=== PATIENT | male | born 2000 | race Caucasian/White ===

== ENCOUNTER 2021-03-03 10:08 | Emergency (ER) | payer OTHER, SELFPAY ==
[2021-03-03 11:27] VITALS: BP 114/67; PULSE 69; RESP 16; TEMP 36.6; BMI 26.0
[2021-03-03 12:57] LABS: Influenza A PCR NEGATIVE (Negative); Influenza B PCR NEGATIVE (Negative); Resp Syncy Virus RNA Qual PCR NEGATIVE (Negative); SARS COV2 PCR INHOUSE NEGATIVE (Negative)
--- NOTE | 2021-03-03 13:10 | ED.URI ---
HPI - URI/Sore Throat General Chief Complaint: Upper Respiratory Symptoms Stated Complaint: flu like Time Seen by Provider: 03/03/21 10:37 Source: patient and family Mode of arrival: ambulatory Limitations: other ([place], autistic ) History of Present Illness HPI Narrative: 20-year-old male with a history of severe autism, hard of hearing using hearing aids who presents to the ER with his brother and mother with a cough and runny nose for the last 2 days. His brother is here with similar symptoms. Patient has not had any fever, chills, nausea, vomiting, diarrhea, abdominal pain. He has had no shortness of breath or wheezing. No chest pain. No known COVID contacts. He is in school. MD elicited complaint: cough and nasal congestion Onset (ago): day(s) (2) Consistency: intermittent Severity: mild Description of mucous: clear Able to tolerate fluids by mouth: Yes Exacerbating factors: nothing Relieving factors: OTC cold medicine Context: sick contacts Associated symptoms: rhinorrhea, nasal congestion and cough Treatments prior to arrival: none Related Data Allergies Allergy/AdvReac Type Severity Reaction Status Date / Time No Known Allergies Allergy Unverified 01/21/20 17:53 Review of Systems Review of Systems: Constitutional: No Fever, No Chills ENT/Mouth: No sore throat, + Rhinorrhea, No Swallowing Difficulty Cardiovascular: No Chest Pain, No SOB Respiratory: + Cough, No Sputum, No Wheezing, No dyspnea Gastrointestinal: No Nausea, No Vomiting, No Diarrhea, No abdominal Maninder Genitourinary: No Dysuria, No Urinary Frequency, No Hematuria Musculoskeletal: No joint pain, No Myalgias Skin: No Skin Lesions, No rash Neuro: No Dizziness, No Headache Heme/Lymph: No Lymphadenopathy PMFSH Past Medical History Medical History Learning disability Social History Social History Advance Directives: No Physical Exam Vital Signs: Vital Signs: Last Vital Signs Temp 97.8 F 03/03/21 11:27 Pulse 69 03/03/21 11:27 Resp 16 03/03/21 11:27 BP 114/67 03/03/21 11:27 Body Mass Index 26.0 Appearance: Alert. Oriented X3. No acute distress. Eyes: Pupils equal, round and reactive to light. ENT: Pharynx normal. Tympanic membranes normal bilaterally. Hearing aid present in left ear. Neck: Normal inspection. Neck supple. CVS: Normal heart rate and rhythm. Pulses normal. Respiratory: No respiratory distress. Breath sounds normal. Skin: Skin warm and dry. Normal skin color. Normal skin turgor. No rashes. Extremities: No lower extremity edema. Neuro: Interacts with mom who is able to communicate with him, avoids eye contact, guarded, ambulating in the room. Course Course Course Narrative: 20-year-old male with history of autism and hearing loss presents to the ER with cough and runny nose for the last 2 days. Positive sick contacts. No known COVID exposure. Vital signs are within normal limits and patient is in no distress. Physical exam is benign. A viral PCR test was sent, and is negative for COVID, flu, RSV. Discussed results with mom and supportive care discussed. She is continuing to give cold and flu medicine with good effect. Patient tolerating p.o. well. Stable for discharge home with his mom with continued supportive care. He will follow-up with soils technician next week. MDM - URI/Sore Throat Lab Data Labs: Lab Results 03/03/21 Range/Units 11:54 Influenza Type A (PCR) NEGATIVE (Negative) Influenza Type B (PCR) NEGATIVE (Negative) RSV RNA Qual (PCR) NEGATIVE (Negative) SARS-CoV-2 RNA (RT-PCR) NEGATIVE (Negative) Discharge Plan Discharge Clinical Impression: Viral infection Patient Disposition: Home, Self-Care Instructions: Viral Syndrome (ED) Additional Instructions: You were negative for flu, COVID, RSV. Continue [id number] cold and flu medications as needed for your symptoms. Rest and stay hydrated. Follow-up with your doctor early next week. If you develop new or worsening symptoms call 911 or come back to the ER for further evaluation. Stand Alone Forms: Work/School Release Print Language: Dominican
== END 2021-03-03 13:42 | disposition home or self-care (01) ==
PROVIDERS: Physician Assistant; Emergency Provider Emergency Medicine; PCP Pediatrics
DX: B34.9 Viral infection, unspecified (principal); H91.90 Unspecified hearing loss, unspecified ear; F84.0 Autistic disorder; Z20.822 Contact with and (suspected) exposure to COVID-19
CPT/HCPCS: 0241U; 36415; 99283

== ENCOUNTER 2023-09-04 09:22 | Emergency (ER) | payer OTHER, SELFPAY ==
--- NOTE | ~2023-09-04 | XR_ITS ---
EXAMINATION: XR CHEST CLINICAL INFORMATION: Cough and shortness of breath COMPARISON: None available. TECHNIQUE: Frontal view of the chest was obtained. FINDINGS: Lungs clear. Heart and pulmonary vessels normal. XR/XR chest 1V IMPRESSION: No active disease.
[2023-09-04 10:04] VITALS: BP 109/68; PULSE 102; RESP 19; TEMP 36.9; O2SAT 97; BMI 26.0
--- OUTSIDE RECORDS SUMMARY | 2023-09-04 10:18 | XMS_ITS | Continuity of Care Document ---
Author Organization [facility] Address [address] [place] [address]- Care Team Providers Care Marketing Finance Specialist Name Role Phone Bandar Moran MD Primary Care Physician Encounter [facility] Date(s): 05/26/19 - 06/05/[address] [address] Attending Physician: Oscar Collier Admitting Physician: Oscar Collier Referring Physician: Admtr Ar8 Allergies, Adverse Reactions, Alerts Substance Reaction Severity Status NKA Active Problem List Condition Effective Dates Status Health Status Inform ant Autism(Confirmed) Active Hearing loss(Confirmed) Active
--- OUTSIDE RECORDS SUMMARY | 2023-09-04 10:20 | XMS_ITS | Continuity of Care Document ---
Author Organization [facility] Address [address] [place] [address]- Care Team Providers Care Mortician Helper Name Role Phone Dean SALAZAR, Bandar Salvador Primary Care Physician Encounter [facility] [place] Date(s): 04/17/19 - 04/27/[address] [address]- [facility] Attending Physician: Oscar Collier Admitting Physician: Oscar Collier Referring Physician: Admtr, Ar8 Allergies, Adverse Reactions, Alerts Substance Reaction Severity Status NKA Active Problem List Condition Effective Dates Status Health Status Inform ant Autism(Confirmed) Active Hearing loss(Confirmed) Active
--- OUTSIDE RECORDS SUMMARY | 2023-09-04 10:20 | XMS_ITS | Continuity of Care Document ---
Author Organization [facility] Address [address] [place] [address]- Care Team Providers Care Cripple Chaser Name Role Phone Bandar Moran MD Primary Care Physician [place] [facility] 10/27/20 - 11/26/20 [facility] [address] [place] [address] Attending Physician: Oscar Collier Admitting Physician: Oscar Collier Referring Physician: Oscar Collier Allergies, Adverse Reactions, Alerts Substance Reaction Severity Status NKA Active Problem List Condition Effective Dates Status Health Status Inform ant Autism(Confirmed) Active Hearing loss(Confirmed) Active
--- OUTSIDE RECORDS SUMMARY | 2023-09-04 10:20 | XMS_ITS | Continuity of Care Document ---
Author Organization [facility] Address [address] [place] [address]- Care Team Providers Care Degreasing Wheel Operator Name Role Phone Dean SALAZAR, Bandar Salvador Primary Care Physician Encounter [facility] [place] Date(s): 07/28/19 - 08/07/[address] [address]- [facility] Attending Physician: Oscar Collier Admitting Physician: Oscar Collier Referring Physician: Admtr, Ar8 Allergies, Adverse Reactions, Alerts Substance Reaction Severity Status NKA Active Problem List Condition Effective Dates Status Health Status Inform ant Autism(Confirmed) Active Hearing loss(Confirmed) Active
--- OUTSIDE RECORDS SUMMARY | 2023-09-04 10:20 | XMS_ITS | Continuity of Care Document ---
Author Organization [facility] Address [address] [id number]- Care Team Providers Care Production Technologist Name Role Phone Rhett Mejia MD Primary Care Physician [phone] Encounter [facility] Date(s): 07/15/21 - 08/14/21 [facility] [address] [place] [address]- [place] Allergies, Adverse Reactions, Alerts No Known Allergies Medications melatonin 3 mg oral tablet 1 tablet = 3 mg, By Mouth, Daily at bedtime, # 90 tablet, 6 Refills Start Date: 02/21/09 Status: Ordered Problem List Condition Effective Dates Status Health Status Inform ant Autism(Confirmed) Active Hard of hearing(Confirmed) Active Hearing loss(Confirmed) Active Hyperglycemia(Confirmed) Active Low vision(Confirmed) Active Social History Social History Type Response Smoking Status Never (less than 100 in lifetime) entered on: 06/22/21 Sex
--- OUTSIDE RECORDS SUMMARY | 2023-09-04 10:20 | XMS_ITS | Continuity of Care Document ---
Author Organization [facility] Address [address] [place] [address]- Care Team Providers Care Crime Victim Specialist Name Role Phone Elías SALAZAR, Jacky Primary Care Physician [phone] Encounter [facility] [place] Date(s): 06/24/19 - 06/24/[address] [address]- [facility] Attending Physician: Bandar Moran MD Allergies, Adverse Reactions, Alerts Substance Reaction Severity Status NKA Active Medications melatonin 3 mg oral tablet 1 tablet = 3 mg, By Mouth, Daily at bedtime, # 90 tablet, 6 Refills Start Date: 02/21/09 Status: Ordered
--- OUTSIDE RECORDS SUMMARY | 2023-09-04 10:20 | XMS_ITS | Continuity of Care Document ---
Author Organization [facility] Address [address] [place] [address]- Care Team Providers Care Enterprise Infrastructure Architect Name Role Phone Rhett Mejia MD Primary Care Physician Encounter [facility] [place] Date(s): 03/20/22 - 03/20/[address] [address] Discharge Disposition: A-D/C Home Attending Physician: Skinny Vazquez MD Admitting Physician: Skinny Vazquez MD Referring Physician: Skinny Vazquez MD Allergies, Adverse Reactions, Alerts No Known Allergies Immunizations Given and Recorded Vaccine Date Status Refusal Reason Meningococcal Conjugate Vaccine 04/15/19 Recorded Human Papillomavirus Vaccine 04/15/19 Recorded tetanus/diphtheria/pertussis, acel(Tdap) 04/15/19 Recorded influenza virus vaccine, inactivated 05/24/17 Daron rded Medications melatonin 3 mg oral tablet 1 tablet = 3 mg, By Mouth, Daily at bedtime, # 90 tablet, 6 Refills Start Date: 02/21/09 Status: Ordered Problem List Condition Confirmation Course Effective Dates Status H ealth Status Informant Autism spectrum disorder Confirmed Active Hearing loss Confirmed Active Hard of hearing Confirmed Active Hearing loss Confirmed Active Hyperglycemia Confirmed Active Low vision Confirmed Active Vital Signs Most recent to oldest [Reference Range]: 1 2 3 Weight 79 kg (03/20/22 7:06 AM) Oxygen Saturation [94-100 %] 100 % (03/20/22 9:00 AM) 96 % (03/20/22 8:45 AM) 96 % (03/20/22 7:06 AM) Pulse Rate [55-90 bpm] 65 bpm (03/20/22 7:06 AM) Blood Pressure [90-138/55-84 mm Hg] 105/66mm Hg (03/20/22 9:00 AM) 106/71mm Hg (03/20/22 8:45 AM) 95/68mm Hg (03/20/22 7:06 AM) Respiratory Rate [16-30 br/min] 22 br/min (03/20/22 9:00 AM) 15 br/min *L* (03/20/22 8:45 AM) 22 br/min (03/20/22 7:06 AM) Temperature [96.8-100.4 DegF] 98.1 DegF (03/20/22 8:45 AM) 98.1 DegF (03/20/22 7:06 AM) Mode of Delivery (Oxygen) Room air (03/20/22 9:00 AM) Room air (03/20/22 8:45 AM) Room air (03/20/22 7:06 AM) Blood pressure sites Arm, left (03/20/22 8:45 AM) Arm, right (03/20/22 7:06 AM) Temperature Route Axillary (03/20/22 8:45 AM) Axillary (03/20/22 7:06 AM) Dry Weight 79 kg (03/20/22 7:06 AM) Weight Obtained Via Standing scale (03/20/22 7:06 AM) Dry Weight Obtained Via Standing scale (03/20/22 7:06 AM) Social History Social History Type Response Smoking Status Never (less than 100 in lifetime) entered on: 06/22/21 Sex Patient Care team information Care Team Personnel Name: Rhett Mejia MD Position: S Primary Care Physician Member Role: PCP Address: Address: [address] [place] [address], [address] [place] [address]- Care Team Related Persons Name: ANDREEA MAI Address: home [address] [place] [address] Name: PRECIOUS BELTRAN Address: home [address] [place] [address]
--- OUTSIDE RECORDS SUMMARY | 2023-09-04 10:20 | XMS_ITS | Continuity of Care Document ---
Author Organization [facility] Address [address] [place] [address]- Care Team Providers Care Object Oriented Developer Name Role Phone Rhett Mejia MD Primary Care Physician Encounter [facility] [place] Date(s): 07/04/22 - 08/03/[address] [address] Attending Physician: Oscar Collier Admitting Physician: AdmOscar duffy Referring Physician: Admtr, Oscar Allergies, Adverse Reactions, Alerts No Known Allergies [...] Hyperglycemia Confirmed Active Low vision Confirmed Active Social History Social History Type Response Smoking Status Never (less than 100 in lifetime) entered on: 06/22/21 Sex Patient Care team information Care Team Personnel Name: Rhett Mejia MD Position: S Primary Care Physician Member Role: PCP Address: Address: [address] [place] [address], [address] [place] [address]- Care Team Related Persons Name: ANDREEA MAI Address: home [address] [place] [address] Name: PRECIOUS BELTRAN Address: home [address] [place] [address]
--- OUTSIDE RECORDS SUMMARY | 2023-09-04 10:20 | XMS_ITS | Continuity of Care Document ---
Author Organization [facility] Address [address] [place] [address]- Care Team Providers Care Maternal Child Nurse Name Role Phone Rhett Mejia MD Primary Care Physician Encounter [facility] Date(s): 06/01/22 - 07/01/[address] [address]- Attending Physician: Oscar Collier Admitting Physician: AdmtrOscar Referring Physician: Admtr, Ar8 Allergies, Adverse Reactions, Alerts No Known Allergies [...] Condition Confirmation Course Effective Dates Status H ealt Status Informant Autism spectrum disorder Confirmed Active [...] Care Physician Member Role: PCP Address: Address: [address] [place] [address], [address] [place] [address]- Care Team Related Persons Name: ANDREEA MAI Address: home [address] [place] [address] Name: PRECIOUS BELTRAN Address: home [address] [place] [address]
--- OUTSIDE RECORDS SUMMARY | 2023-09-04 10:20 | XMS_ITS | Continuity of Care Document ---
Author Organization [facility] Address [address] [place] [address]- Care Team Providers Care Vender Name Role Phone Bandar Moran MD Primary Care Physician Encounter [facility] Date(s): 05/26/19 - 05/26/[address] [address]- [facility] Discharge Disposition: A-D/C Home Attending Physician: Bandar Moran MD Admitting Physician: Bandar Moran MD Referring Physician: Bandar Moran MD Allergies, Adverse Reactions, Alerts Substance Reaction Severity Status NKA Active Problem List Condition Effective Dates Status Health Status Inform ant Autism(Confirmed) Active Hearing loss(Confirmed) Active Vital Signs Most recent to oldest [Reference Range]: 1 2 3 Weight 83 kg (05/26/19 8:58 AM) Oxygen Saturation [94-100 %] 100 % (05/26/19 11:10 AM) 99 % (05/26/19 10:54 AM) 100 % (05/26/19 10:39 AM) Pulse Rate [55-90 bpm] 78 bpm (05/26/19 8:58 AM) Blood Pressure [80-130/50-80 mm Hg] 111/67mm Hg (05/26/19 11:10 AM) 106/56mm Hg (05/26/19 10:54 AM) 107/68mm Hg (05/26/19 10:39 AM) Respiratory Rate [16-30 br/min] 13 br/min *L* (05/26/19 11:10 AM) 15 br/min *L* (05/26/19 10:54 AM) 15 br/min *L* (05/26/19 10:39 AM) Temperature [96.8-100.4 DegF] 97.5 DegF (05/26/19 11:10 AM) 97.6 DegF (05/26/19 10:54 AM) 97.7 DegF (05/26/19 10:39 AM) Mode of Delivery (Oxygen) Room air (05/26/19 11:10 AM) Room air (05/26/19 10:54 AM) Room air (05/26/19 10:39 AM) Blood pressure sites Arm, left (05/26/19 11:10 AM) Arm, left (05/26/19 10:54 AM) Arm, left (05/26/19 10:38 AM) Temperature Route Axillary (05/26/19 11:10 AM) Oral (05/26/19 10:54 AM) Oral (05/26/19 10:39 AM) Dry Weight 83 kg (05/26/19 8:58 AM)
--- OUTSIDE RECORDS SUMMARY | 2023-09-04 10:20 | XMS_ITS | Continuity of Care Document ---
Author Organization [facility] Address [address] [place] [address]- Care Team Providers Care Process Environmental Technician Name Role Phone Bandar Moran MD Primary Care Physician [id number] Date(s): 03/30/20 - 04/29/20 [facility] [address] [place] [address] Attending Physician: Oscar Collier Admitting Physician: Oscar Collier Referring Physician: Oscar Collier Allergies, Adverse Reactions, Alerts Substance Reaction Severity Status NKA Active Problem List Condition Effective Dates Status Health Status Inform ant Autism(Confirmed) Active Hearing loss(Confirmed) Active
--- NOTE | 2023-09-04 11:04 | ED_ITS ---
HPI - General Adult General Chief complaint: General Medical Stated complaint: Fever, cough, congestion Time Seen by Provider: 09/04/23 10:20 Source: family Mode of arrival: ambulatory Limitations: no limitations History of Present Illness HPI narrative: 23 year old past medical history significant for CVA and autistic nonverbal male presents with mother who is concerned that child has a sore throat and cough cathryn oing for the past 3-4 days. Mother reports he has been pointing in his throat in complaining that his throat hurts he has also had a productive cough of yellow thick phlegm, also complaining of congestion, body aches and pains. Mother reports he has been eating and drinking however slightly less than usual. Normal bowel habits in urinary habits. Possible fevers at home. No sick contacts. Denies chest pain, shortness of breath, nausea, vomiting, diarrhea, abdominal pain, headache, vision changes, dizziness or weakness. Related Data Previous Rx's ?Medication ?Instructions ?Recorded acetaminophen 325 mg capsule 650 mg (2 x 325 mg) PO Q4H PRN 09/04/23 (Tylenol) pain #30 caps doxycycline hyclate 100 mg capsule 100 mg PO BID 10 days #20 caps 09/04/23 prednisone 20 mg tablet 40 mg (2 x 20 mg) PO DAILY 5 days 09/04/23 #10 tabs Allergies Allergy/AdvReac Type Severity Reaction Status Date / Time No Known Allergies Allergy Verified 09/04/23 10:08 Review of Systems Review of Systems: Yes all other systems are reviewed and are negative PMFSH Past Medical History Attestation statement: The following information was validated with the patient. Source: old records reviewed and nursing notes reviewed Medical History Learning disability Social History Social History Advance Directives: No Do you have a plan to hurt others: No Plan Physical Exam ED Vital Signs: Vital Signs - 24 hr 09/04/23 10:04 09/04/23 13:51 Temperature 98.5 F 97 F Pulse Rate 102 H 90 Respiratory Rate 19 20 Blood Pressure 109/68 108/68 Pulse Oximetry 97 98 Oxygen Delivery Method Room Air Room Air BMI result Body Mass Index 26.0 vss Appearance: Alert.? Oriented X3.? No acute distress.? Head: Normocephalic, atraumatic, no step-offs or deformities Eyes: Pupils equal, round and reactive to light.? ENT: Pharynx with slight erythema, no edema, abscess, exudate, uvula midline. Speaking without difficulty controlling secretions well. Patient eating and drinking well, eating ice cream without difficulty. No palpable adenopathy. No pain w/ manipulation of external ear b/l. No mastoid tenderness. Neck: Normal inspection.? Neck supple.? CVS: Normal heart rate and rhythm.? Pulses normal.? Respiratory: No respiratory distress.? Breath sounds normal.? Abdomen: Soft and nontender.? Skin: Skin warm and dry.? Normal skin color.? Normal skin turgor.? Extremities: No lower extremity edema.? No calf ttp. 5/5 strength to bilateral upper and lower extremities Back: No midline tenderness, no C-spine tenderness, full range of motion, no CVA tenderness bilaterally Neuro: Oriented X 3.? No motor deficit.? No sensory deficit. CN 2-12 intact Medications Administered Discontinued Medications Generic Name Dose Route Start Last Admin Trade Name Freq PRN Reason Stop Dose Admin Acetaminophen 975 mg 09/04/23 11:17 09/04/23 11:25 Acetaminophen 325 Mg Tablet PO 09/04/23 11:18 975 mg ONCE ONE Administration Dexamethasone Sodium Phosphate 10 mg 09/04/23 11:17 09/04/23 11:25 Dexamethasone Sod Phosphate 10 Mg/Ml Vial IVPUSH 09/04/23 11:18 10 mg ONCE ONE Administration Medical Decision Making Medical Decision Making [facility] Narrative: 1152 23 year old male prsents w/ mother her is non verbal mom concerned of productive cough and sore throat. Pharynx with slight erythema, no edema, abscess, exudate, uvula midline. Speaking without difficulty controlling secretions well. Patient eating and drinking well, eating ice cream without difficulty. No palpable adenopathy. No pain w/ manipulation of external ear b/l. No mastoid tenderness. History and physical exam concerning for viral illness flu versus COVID versus RSV. Unlikely PE, pneumonia, ACS, acute threat to airway, peritonsillar abscess, retropharyngeal abscess, epiglottitis. No signs of acute respiratory distress at this time. Plan viral testing, strep test. Differential Diagnosis Differential Diagnoses: The differential diagnosis associated with the presentation includes History and physical exam concerning for viral illness flu versus COVID versus RSV. Unlikely PE, pneumonia, ACS, acute threat to airway, peritonsillar abscess, retropharyngeal abscess, epiglottitis. No signs of acute respiratory distress at this time. Admission/Observation Consideration of admission/observation: Escalation of care including a dmission/observation considered Lab Data MDM Lab Attestation statement: I reviewed the patient's lab results. Labs: Lab Results 09/04/23 09/04/23 Range/Units 10:53 12:35 Influenza Type A (PCR) NEGATIVE (Negative) Influenza Type B (PCR) NEGATIVE (Negative) RSV RNA Qual (PCR) NEGATIVE (Negative) SARS-CoV-2 RNA (RT-PCR) NEGATIVE (Negative) S. pyogenes GrpA DONTAE Negative (Negative) Discharge Plan Discharge Clinical Impression: Bronchitis, Acute sore throat Patient Disposition: Home, Self-Care Instructions: Pharyngitis (ED), Acute Bronchitis (ED) Additional Instructions: Take your medications as prescribed. If you were prescribed antibiotics today, it is important that you take your medication to their entirety, do not skip any doses, do not finish them early. Follow-up with your primary care provider this week. Return to the emergency department with new or worsening symptoms. In case of emergency call 911 Prescriptions: New doxycycline hyclate 100 mg capsule 100 mg PO BID 10 Days Qty: 20 0RF prednisone 20 mg tablet 40 mg PO DAILY 5 Days Qty: 10 0RF acetaminophen [Tylenol] 325 mg capsule 650 mg PO Q4H PRN (Reason: pain) Qty: 30 0RF Referrals: Rhett Mejia MD [Primary Care Provider] - 2 days Stand Alone Forms: Work/School Release Interventions: ED Discharge Assessment Last Done: 09/04/23 13:51 Discharge Date/Time: 09/04/23 13:51 Print Language: Panamanian Sign Language
--- NOTE | 2023-09-04 11:21 | PC.NURSE ---
unable to obtain strep swab at this time, pt unable to follow commands and open mouth for swab despite assistance from mother explaining at bedside. provider aware.
[2023-09-04] MEDS: dexAMETHasone sod phosphate 10 MG/ML VIAL IVPUSH (11:25)
[2023-09-04] MEDS: Acetaminophen 325 MG TABLET 975 MG PO (11:25)
--- NOTE | 2023-09-04 11:28 | PC.NURSE ---
pt medicated per MAR
[2023-09-04 11:36] LABS: Influenza A PCR NEGATIVE (Negative); Influenza B PCR NEGATIVE (Negative); Resp Syncy Virus RNA Qual PCR NEGATIVE (Negative); SARS COV2 PCR INHOUSE NEGATIVE (Negative)
[2023-09-04 12:54] LABS: IDNOW Serial# 08D9AD1C; Strep A Nucleic Acid Negative (Negative)
[2023-09-04 13:51] VITALS: BP 108/68; PULSE 90; RESP 20; TEMP 36.1; O2SAT 98
== END 2023-09-04 13:51 | disposition home or self-care (01) ==
PROVIDERS: Emergency Provider Emergency Medicine; PCP Internal Medicine
DX: J40 Bronchitis, not specified as acute or chronic (principal); J02.9 Acute pharyngitis, unspecified; R05.9 Cough, unspecified; Z11.52 Encounter for screening for COVID-19; Z20.828 Contact with and (suspected) exposure to other viral communicable diseases
CPT/HCPCS: 0241U; 71045; 87651; 99283; J1100